=== PATIENT | male | born 1985 | race Caucasian/White ===

== ENCOUNTER 2023-03-06 15:09 | Emergency (ER) | payer OTHER, SELFPAY ==
[2023-03-06 15:23] VITALS: BP 138/85; PULSE 68; RESP 16; TEMP 37.2; O2SAT 99
--- NOTE | 2023-03-06 15:43 | ED.SKABFB ---
HPI - Skin/Abscess/Foreign Bdy General Chief complaint: Skin/Abscess/Foreign Body Stated complaint: Impetigo Time Seen by Provider: 03/06/23 15:43 Source: patient, RN notes reviewed and old records reviewed Mode of arrival: ambulatory Limitations: no limitations History of Present Illness HPI narrative: 38 year old male presents to [facility] care with complaints of yellow crusting rash to his right nare and also to his chin for one week duration. Patient reports that his son was just diagnosed with impetigo one week ago. Patient reports that he has noted some yellow crusting to lesions with some itching.Patient reports that he is allergic to Penicillin, Sulfa, and EEs based drugs and also Suprax but has taken Ceftin and Biaxin in past with no problems.Patient reports no fevers chills or any body aches. MD complaint: rash Onset (ago): week(s) (1) Location: face (right nare and to chin area) Severity scale (1-10): 1 Treatments prior to arrival: none Related Data Allergies Allergy/AdvReac Type Severity Reaction Status Date / Time cefixime [From Suprax] Allergy Rash Verified 03/06/23 15:54 erythromycin base Allergy Rash Verified 03/06/23 15:54 Penicillins Allergy Rash Verified 03/06/23 15:54 sulfamethoxazole Allergy Rash Verified 03/06/23 15:54 [From Septra] trimethoprim [From Decra] Allergy Rash Verified 03/06/23 15:54 Review of Systems Review of Systems: CONSTITUTIONAL: Denies fever, chills, or sweats. CARDIOVASCULAR: Denies chest pain, palpitations, or edema. RESPIRATORY: Denies cough or dyspnea. SKIN: Reports rash with yellow crusting to his nose right nares and to his chin with yellowish crusting MUSCULOSKELETAL: Denies joint pain or myalgia. NEUROLOGIC: Denies headache, numbness, or weakness. All systems reviewed & are unremarkable except as noted in HPI and below PMFSH Social History Social History (Updated 03/08/23 @ 09:29 by Yuridia Espinosa NP) Smoking status: Never smoker Alcohol intake: current Alcohol use details: social Substance use type: does not use Living arrangements: with family Gender identity (if verbalized by the patient): Male Comments At time of signature, agree with nursing past medical, surgical, social and family history. There is no relevant family history pertinent to the presenting complaint Exam Narrative: GENERAL: Well-appearing, well-nourished, and in no acute distress. HEAD: Normocephalic, atraumatic. EYES: PERRLA, conjunctivae clear, and EOMI. ENT: Mucous membranes moist. Oropharynx without edema, erythema or lesions. NECK: Supple. No lymphadenopathy CHEST: Clear to auscultation. No respiratory distress.SAO2 99% on room air HEART: Regular rate and rhythm. SKIN: Warm, dry.?patchy lesion to chin with yellow crusting and also area to right nares with yellow crusty drainage. NEURO:? Alert and oriented x3. PSYCH: Normal mood and affect Course Course Emergency Course: Patient is aware of diagnosis, understands and agrees to treatment plan.? Anticipatory guidance given.? Patient agrees to follow-up as directed and is aware of reasons to seek care at the emergency department. Portions of this record may have been created with voice recognition software Level of Care: Express Care Visit Vital Signs Vital signs: Vital Signs Temperature 37.2 C 03/06/23 15:23 Pulse Rate 68 03/06/23 15:23 Respiratory Rate 16 03/06/23 15:23 Blood Pressure 138/85 03/06/23 15:23 Pulse Oximetry 99 03/06/23 15:23 Temperature 37.2 C 03/06/23 15:23 Pulse Rate 68 03/06/23 15:23 Respiratory Rate 16 03/06/23 15:23 Blood Pressure 138/85 03/06/23 15:23 Pulse Oximetry 99 03/06/23 15:23 Reviewed MDM - Skin/Abscess/Foreign Bdy MDM Narrative Medical decision making narrative: Does not appear at this time to be erythema multiforme, bullous, SJS, TEN; no evidence at this time to suggest RMSF, endocarditis or Lyme disease; candy
== END 2023-03-06 16:00 | disposition home or self-care (01) ==
PROVIDERS: Emergency Provider Registered Nurse
DX: L01.00 Impetigo, unspecified (principal)
CPT/HCPCS: 99213; G0463